=== PATIENT | male | born 1990 | race Caucasian/White ===

== ENCOUNTER 2020-01-29 07:01 | Emergency (ER) | payer SELFPAY ==
[~2020-01-29] VITALS: Ht 175.3 cm; Wt 63.5 kg
[2020-01-29 06:59] VITALS: BP 111/69
--- NOTE | 2020-01-29 06:59 | NUR ---
ED Nurse Note: Pt arrived with RA 61 due to behavioral complaint, pt was standing on the street. pt denies SI. pt appear to be under the influence. pt has spastic movements
--- NOTE | 2020-01-29 07:09 | Emergency Room Report ---
History of Present Illness General Chief Complaint: General Complaint Source: Patient Present Illness HPI Disclaimer: Please note that this report is being documented using DRAGON technology. This can lead to erroneous entry secondary to incorrect interpretation by the dictating instrument. HPI: 29-year-old homeless male presents via EMS requesting placement services. The patient states he has been abusing crystal meth for a long time and has a history of depression. Depression is getting worse but denies SI or HI. No suicide attempts or attempted self-harm per patient. States he used crystal meth earlier today and would like to get clean. Has completed inpatient detox services before. Does not have a psychiatrist currently is no longer taking Cymbalta since moving from [facility] 2-1/2 months ago. He is requesting something to eat. Denies any recent trauma, vomiting, fever, chills , cough, chest pain, shortness of breath or other changes in his health otherwise. PMH: Depression, substance abuse PSH: Reviewed Allergies: Reviewed Social Hx: Methamphetamine abuse Allergies: Coded Allergies: No Known Allergies (Unverified , 01/29/20) COVID-19 Screening Contact w/high risk pt: No Experienced COVID-19 symptoms?: No COVID-19 Testing performed METAL BUGGY OPERATOR: No Nursing Documentation-PMH History Of Psychiatric Problem: Yes Review of Systems All Other Systems: negative except mentioned in HPI Physical Exam Vital Signs Date Time Temp Pulse Resp B/P (MAP) Pulse Ox O2 Delivery O2 Flow Rate FiO2 01/29/20 06:56 97.9 86 01/29/20 06:56 16 111/69 (83) 98 Room Air General: Awake and alert, unkempt, no acute distress HEENT: NC/AT. EOMI. Cardiovascular: RRR. S1 and S2 normal. No murmur appreciated Resp: Normal work of breathing. No cough, wheezing or crackles appreciated Abdomen: Abdomen is soft, nondistended. Nontender Skin: Intact. No abrasions, laceration or rash over the exposed skin MSK: Normal tone and bulk. Moving all extremities. No obvious deformity. Neuro: Awake and alert. Mentating appropriately. Denies SI/HI. Does not appear to be hallucinating or responding to internal stimuli. Medical Decision Making Homeless Attestation Patient has been medically screened and is stable for outpatient follow up Diagnostic Impression: Primary Impression: Methamphetamine abuse ER Course Is a 29-year-old male presenting by EMS requesting placement in detox services for amphetamine abuse. Arrives with stable vital signs, no acute distress, mentating appropriately and denies SI/HI. The patient was previously taking Cymbalta for depression but does not follow-up with a psychiatrist since moving here from [facility] 2-1/2 months ago. Labs were obtained for medical clearance should he require them for voluntary placement to detox facility. He was provided with food. 0900: Labs have returned within normal limits. Patient tested positive for methamphetamine consistent with his history. Attempted to place patient in several detox facilities however he was unable to verify his Social Security number and insurance and therefore we are unable to establish a spot for him in an inpatient detox center. The patient denies any SI/HI currently and will be provided with resources to follow-up on his own. We instructed him that if he should be able to recall his Social Security or provide any other information regarding his insurances we may be able to help him with placement in the future. He does not appear to be in acute withdrawal or suffering from any acute medical conditions at this time. He was provided with food and clothing to take with him on discharge. He is stable for outpatient follow-up and instructed to return to the ED with any new or worsening symptoms. Laboratory Tests Test 01/29/20 07:10 White Blood Count 12.0 K/UL (4.8-10.8) H Red Blood Count 4.28 M/UL (4.70-6.10) L Hemoglobin 12.9 G/DL (14.2-18.0) L Hematocrit 38.7 % (42.0-52.0) L Mean Corpuscular Volume 90 FL (80-99) Mean Corpuscular Hemoglobin 30.2 PG (27.0-31.0) Mean Corpuscular Hemoglobin Concent 33.4 G/DL (32.0-36.0) Red Cell Distribution Width 11.5 % (11.6-14.8) L Platelet Count 270 K/UL (150-450) Mean Platelet Volume 7.2 FL (6.5-10.1) Neutrophils (%) (Auto) 80.9 % (45.0-75.0) H Lymphocytes (%) (Auto) 11.7 % (20.0-45.0) L Monocytes (%) (Auto) 6.3 % (1.0-10.0) Eosinophils (%) (Auto) 0.7 % (0.0-3.0) Basophils (%) (Auto) 0.5 % (0.0-2.0) Sodium Level 137 MMOL/L (136-145) Potassium Level 3.1 MMOL/L (3.5-5.1) L Chloride Level 105 MMOL/L (98-107) Carbon Dioxide Level 27 MMOL/L (21-32) Anion Gap 5 mmol/L (5-15) Blood Urea Nitrogen 11 mg/dL (7-18) Creatinine 0.9 MG/DL (0.55-1.30) Estimated Glomerular Filtration Rate > 60 mL/min (>60) Glucose Level 84 MG/DL (74-106) Calcium Level 8.2 MG/DL (8.5-10.1) L Total Bilirubin 0.5 MG/DL (0.2-1.0) Aspartate Amino Transferase (AST) 148 U/L (15-37) H Alanine Aminotransferase (ALT) 93 U/L (12-78) H Alkaline Phosphatase 68 U/L (46-116) Total Protein 6.7 G/DL (6.4-8.2) Albumin 3.5 G/DL (3.4-5.0) Globulin 3.2 g/dL Albumin/Globulin Ratio 1.1 (1.0-2.7) Salicylates Level 2.0 ug/mL (2.8-20) L Urine Opiates Screen Negative (NEGATIVE) Acetaminophen Level < 2 MCG/ML (10-30) L Urine Barbiturates Screen Negative (NEGATIVE) Phencyclidine (PCP) Screen Negative (NEGATIVE) Urine Amphetamines Screen Positive (NEGATIVE) H Urine Benzodiazepines Screen Negative (NEGATIVE) Urine Cocaine Screen Negative (NEGATIVE) Urine Marijuana (THC) Screen Negative (NEGATIVE) Serum Alcohol < 3 mg/dL Last Vital Signs Date Time Temp Pulse Resp B/P (MAP) Pulse Ox O2 Delivery O2 Flow Rate FiO2 01/29/20 06:59 86 16 Room Air 01/29/20 06:59 97.9 111/69 98 Disposition: HOME, SELF-CARE Condition: Stable Steve Nieves MD Jan 29, 2020 07:09
--- NOTE | 2020-01-29 07:17 | NUR ---
ED Nurse Note: Pt blood specimen collected via butterfly needle. blood and urine specimen sent to lab. pt calm and cooperative. Pt states he wants to be in detox. pt admits taking methamphetamine today.
--- NOTE | 2020-01-29 07:26 | NUR ---
ED Nurse Note: Called Aixa Valladares from [facility] in regards to placing pt with medical detox and residential treatment. Will verify pt insurance and call back.
--- NOTE | 2020-01-29 07:27 | NUR ---
ED Nurse Note: Aixa Valladares: [phone]
[2020-01-29 07:28] LABS: BASOPHILS % (AUTO) 0.5 % (0.0-2.0); EOSINOPHILS % (AUTO) 0.7 % (0.0-3.0); HEMATOCRIT 38.7 % (42.0-52.0); HEMOGLOBIN 12.9 G/DL (14.2-18.0); LYMPHOCYTES % (AUTO) 11.7 % (20.0-45.0); MEAN CORPUSCULAR VOLUME 90 FL (80-99); MONOCYTES % (AUTO) 6.3 % (1.0-10.0); NEUTROPHILS % (AUTO) 80.9 % (45.0-75.0); PLATELET COUNT 270 K/UL (150-450); RED BLOOD COUNT 4.28 M/UL (4.70-6.10); RED CELL DISTRIBUTION WIDTH 11.5 % (11.6-14.8)
[2020-01-29 07:42] LABS: ANION GAP 5 mmol/L (5-15); BLOOD UREA NITROGEN 11 mg/dL (7-18); CALCIUM 8.2 MG/DL (8.5-10.1); CARBON DIOXIDE 27 MMOL/L (21-32); CHLORIDE 105 MMOL/L (98-107); CREATININE 0.9 MG/DL (0.55-1.30); POTASSIUM 3.1 MMOL/L (3.5-5.1); SODIUM 137 MMOL/L (136-145)
[2020-01-29 07:44] LABS: ALANINE AMINOTRANSFERASE 93 U/L (12-78); ALBUMIN 3.5 G/DL (3.4-5.0); ALBUMIN/GLOBULIN RATIO 1.1 (1.0-2.7); ALKALINE PHOSPHATASE 68 U/L (46-116); ASPARTATE AMINO TRANSFERASE 148 U/L (15-37); BILIRUBIN,TOTAL 0.5 MG/DL (0.2-1.0)
--- NOTE | 2020-01-29 08:01 | NUR ---
ED Nurse Note: PT states he no longer wants to be placed with detox. He just wants a meal. Breakfast tray served to pt.
--- NOTE | 2020-01-29 08:58 | NUR ---
ED Nurse Note: Had pt speak with Aixa from [facility]. pt was unable to verify his social security number to verify insurance. pt was unable to placed directly but will be given detox center referral applicable to him.
--- NOTE | 2020-01-29 09:00 | NUR ---
ED Nurse Note: Pt has adequate clothing, pt was given meal and drink to go. pt given detox referrals.
--- NOTE | 2020-01-29 09:04 | NUR ---
ER DISCHARGE NOTE: Patient is cleared to be discharged per ERMD, pt is aox4, on room air, with stable vital signs. pt was given dc instructions, pt was able to verbalize understanding, pt id band removed. pt is able to ambulate with steady gait. pt took all belongings, has adequate clothing, pt has been given meal, and detox centern referrals
[2020-01-29 09:07] VITALS: BP 116/73
== END 2020-01-29 09:04 | disposition home or self-care (01) ==
LOC: EDBD 07:01 → EMR 07:35
DX: F15.10 Other stimulant abuse, uncomplicated (principal); F32.9 Major depressive disorder, single episode, unspecified
CPT/HCPCS: 36415; 80053; 80307; 85025; 99284; G0480

== ENCOUNTER 2020-01-29 22:52 | Emergency (ER) | payer SELFPAY ==
[~2020-01-29] VITALS: Ht 167.6 cm; Wt 59.0 kg
[2020-01-29 22:58] VITALS: BP 112/72
--- NOTE | 2020-01-29 22:58 | NUR ---
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 Pt aao x 4, resting in bed, pt presents with unsteady gait. VSS, no ss of distress noted. Pt denies pain or injury. Pt denies previous hx of falls. ERMD at bedside.
--- NOTE | 2020-01-29 23:01 | Emergency Room Report ---
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 He presents with chief complaint of generalized weakness. He is homeless. He also has a history of methamphetamine abuse. He was just here earlier this morning and was discharged. He was sitting on the curb on the sidewalk and bystander called 911. Patient denies any fever chills but denies any nausea vomiting. Said that he is hungry and want a place to sleep. Denies any suicidal thoughts or homicidal thought. Said that he has Kingsland but does not take any medication for it. Allergies: Coded Allergies: No Known Allergies (Unverified , 01/29/20) COVID-19 Screening Contact w/high risk pt: No Experienced COVID-19 symptoms?: No COVID-19 Testing performed TECHNICAL LABORATORY ASST: No Patient History Past Medical History: see triage record, old chart reviewed Past Surgical History: none Pertinent Family History: none Social History: Reports: smoking, drug use Immunizations: other Reviewed Nursing Documentation: PMH: Agreed; PSxH: Agreed Nursing Documentation-PMH Past Medical History: No History, Except For Review of Systems Constitutional: Reports: weakness Eye: Denies: eye pain, blurred vision ENT: Denies: ear pain, nose congestion, throat swelling Respiratory: Denies: cough, shortness of breath Cardiovascular: Denies: chest pain, palpitations Gastrointestinal: Denies: abdominal pain, diarrhea, nausea, vomiting Musculoskeletal: Denies: back pain, joint pain Skin: Denies: rash Neurological: Denies: headache, numbness Endocrine: Denies: increased thirst, increased urine Hematologic/Lymphatic: Denies: easy bruising All Other Systems: negative except mentioned in HPI Physical Exam Vital Signs Date Time Temp Pulse Resp B/P (MAP) Pulse Ox O2 Delivery O2 Flow Rate FiO2 01/29/20 22:51 98.2 92 18 112/72 (85) 98 Room Air Vitals normal Sp02 EP Interpretation: reviewed, normal General Appearance: well appearing, no apparent distress, alert Head: normocephalic, atraumatic Eyes: bilateral eye PERRL, bilateral eye EOMI ENT: hearing grossly normal, normal pharynx Neck: full range of motion, supple, no meningismus Respiratory: chest non-tender, lungs clear, normal breath sounds Cardiovascular #1: regular rate, rhythm, no murmur Gastrointestinal: normal bowel sounds, non tender, no mass, no organomegaly, no bruit, non-distended Musculoskeletal: back normal, normal range of motion Neurologic: other - Choreiform movements Psychiatric: mood/affect normal Medical Decision Making Diagnostic Impression: Primary Impression: Methamphetamine abuse Additional Impression: Kingsland's disease ER Course Patient presents with weakness. This probably secondary to drug abuse. He was here earlier for methamphetamine abuse. Is Carmen is at baseline. He is eating and drinking here without any problem. He is sleeping without any problem. He does not want to stay in the hospital. Will discharge in the morning. Patient does not meet criteria for 5150. He is competent to make decision to not stay in the hospital. This patient is a chronic risk of self injury due to poor impulse control, limited coping skills, and judgment intermittently impaired by intoxication. I believe that the available clinical evidence to suggest that these characteristics derived primarily from personality disorder and are likely very stable over time. Hospitalization would likely attenuate risk of self-harm only during mcc period, without lasting risk reduction. Serious self-harm , while possible, would likely be inadvertent, and because of impulsivity, and foreseeable. For these reasons, I do not believe hospitalization would provide meaningful reduction in risk of self-harm. Last Vital Signs Date Time Temp Pulse Resp B/P (MAP) Pulse Ox O2 Delivery O2 Flow Rate FiO2 01/29/20 22:51 98.2 92 18 112/72 (85) 98 Room Air Status: improved Disposition: HOME, SELF-CARE Condition: Stable Additional Instructions: Stop using drugs. Follow-up with rehab. Follow-up with your doctor in a week. Return if worse. Robert Santamaria MD Jan 29, 2020 23:01
--- NOTE | 2020-01-30 00:53 | NUR ---
ED Nurse Note: Patient resting in bed, no acute distress noted.
--- NOTE | 2020-01-30 03:59 | NUR ---
ED Nurse Note: Patient sleeping bed, no acute distres noted.
--- NOTE | 2020-01-30 05:40 | NUR ---
ER DISCHARGE NOTE: Patient is cleared to be discharged per ERMD, pt is aox4, on room air, with stable vital signs. pt was given dc instructions and homeless resources, refused to cooperate. patient refused to sign discharge paperwork and homeless paperwork. patient has appropriate clothing and provided with meal prior to discharge. patient stable upon discharge and entered in homeless log.
== END 2020-01-30 05:40 | disposition home or self-care (01) ==
LOC: EDBD 22:52 → EMR 23:14
DX: F15.10 Other stimulant abuse, uncomplicated (principal); G10 Huntington's disease
CPT/HCPCS: 99281

== ENCOUNTER 2020-01-30 18:06 | Emergency (ER) | payer SELFPAY ==
[~2020-01-30] VITALS: Ht 175.3 cm; Wt 72.6 kg
[2020-01-30 18:06] VITALS: BP 105/75
--- NOTE | 2020-01-30 18:06 | NUR ---
ED Nurse Note: Patient ARASH RA[address] from street c/o weakness. Pt was seen lying on the ground outside a motel. Pt stated feeling weak to walk. Pt AAOx4, verbally responsive. No SOB, on room air.
--- NOTE | 2020-01-30 18:37 | NUR ---
ED Nurse Note: Xray at bedside.
--- NOTE | 2020-01-30 19:08 | NUR ---
HAND-OFF: Report given to Trevon WASHINGTON.
[2020-01-30 19:11] LABS: ANION GAP 11 mmol/L (5-15); BLOOD UREA NITROGEN 8 mg/dL (7-18); CALCIUM 8.5 MG/DL (8.5-10.1); CARBON DIOXIDE 26 MMOL/L (21-32); CHLORIDE 108 MMOL/L (98-107); CREATININE 0.9 MG/DL (0.55-1.30); POTASSIUM 3.9 MMOL/L (3.5-5.1); SODIUM 145 MMOL/L (136-145)
[2020-01-30 19:17] LABS: ALANINE AMINOTRANSFERASE 84 U/L (12-78); ALBUMIN 3.3 G/DL (3.4-5.0); ALBUMIN/GLOBULIN RATIO 0.9 (1.0-2.7); ALKALINE PHOSPHATASE 63 U/L (46-116); ASPARTATE AMINO TRANSFERASE 111 U/L (15-37); BILIRUBIN,TOTAL 0.3 MG/DL (0.2-1.0)
--- NOTE | 2020-01-30 19:24 | Emergency Room Report ---
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 Denies any cough congestion, shortness of breath, headache and dizziness. Complete blood work was done on him yesterday and all within normal limits. Patient denies any drug use. Appears to be under the influence of an unknown stimulant. Speaking in full sentences. At this time patient is not a good historian. Denies alcohol intake. Patient is asking for sandwich and more fluid in liquids upon arrival. (Nancy Uriostegui) Allergies: Coded Allergies: No Known Allergies (Unverified , 01/29/20) COVID-19 Screening COVID-19 risk:Contact w/high r: No Has patient experienced [place]: No COVID-19 Testing performed TWILL CUTTER: No (Nancy Uriostegui) Patient History Past Medical History: see triage record Past Surgical History: none Family History: none Immunizations: UTD Reviewed Nursing Documentation: PMH: Agreed; PSxH: Agreed (Nancy Uriostegui) Nursing Documentation-PMH Past Medical History: No History, Except For (Nancy Uriostegui) Review of Systems All Other Systems: negative except mentioned in HPI (Nancy Uriostegui) Physical Exam Vital Signs Date Time Temp Pulse Resp B/P (MAP) Pulse Ox O2 Delivery O2 Flow Rate FiO2 01/30/20 18:03 98.4 102 18 105/75 (85) 96 Room Air Sp02 EP Interpretation: reviewed, normal General Appearance: alert/responsive, no apparent distress, GCS 15, non-toxic Head: atraumatic Eyes: PERRL, lids + conjunctiva normal ENT: hearing intact, no angioedema Neck: supple/symm/no masses, no meningismus Respiratory: effort normal, no wheezing, chest symmetrical Cardiovascular: regular rate, rhythm, no edema Gastrointestinal: no mass Musculoskeletal: gait & station normal Neurologic: oriented x3, sensory intact, normal speech Psychiatric: no suicidal/homicidal ideation, affect normal Skin: no rash Lymphatic: normal inspection (Nancy Uriostegui) Medical Decision Making PA Attestation All diagnoses and treatment plans were reviewed and discussed with my supervising physician Dr. 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 Denies any cough congestion, shortness of breath, headache and dizziness. Complete blood work was done on him yesterday and all within normal limits. Patient denies any drug use. Appears to be under the influence of an unknown stimulant. Speaking in full sentences. At this time patient is not a good historian. Denies alcohol intake. Patient is asking for sandwich and more fluid in liquids upon arrival. Ddx considered but are not limited to: Alcohol intoxication with altered level of consciousness, alcohol intoxication causing pancreatitis, alcohol abuse, multi drug use and alcohol intoxication, methamphetamine abuse Vital signs: are WNL, pt. is afebrile H&PE are most consistent with: Methamphetamine abuse ORDERS: Chest x-ray, CBC, CMP, tox screen, ER intervention: NS bolus, DISCHARGE: At this time pt. is stable for d/c to home. Will provide printed patient care instructions, and any necessary prescriptions. Care plan and follow up instructions have been discussed with the patient prior to discharge. Patient to be discharged after hydration. Patient to check himself into detox center and avoid using methamphetamine. (Nancy Uriostegui) Chest X-Ray Diagnostic Results Chest X-Ray Diagnostic Results : Chest X-Ray Ordered: Yes # of Views/Limited/Complete: 1 View Indication: Other EP Interpretation: Yes Interpretation: no consolidation, no effusion, no pneumothorax Impression: No acute disease Electronically Signed by: Nancy Mims PA-C (Nancy Uriostegui) Chest X-Ray Diagnostic Results : Electronically Signed by: Cm Suarez documentation of Xray reviewed by me and is accurate, Mehrdad Simms MD (Mehrdad Simms MD) Last Vital Signs Date Time Temp Pulse Resp B/P (MAP) Pulse Ox O2 Delivery O2 Flow Rate FiO2 01/30/20 18:06 102 18 Room Air 01/30/20 18:06 98.4 105/75 96 (Nancy Uriostegui) Disposition: HOME, SELF-CARE Condition: Stable Patient Instructions: Stimulant Use Disorder-Methamphetamines Additional Instructions: Avoid using methamphetamine, follow with primary care provider, increase oral hydration, worsening symptoms return to the emergency room Nancy Uriostegui Jan 30, 2020 19:24 Mehrdad Simms MD Jan 31, 2020 02:29
--- NOTE | 2020-01-30 19:30 | NUR ---
ED Nurse Note: Received patient from [facility]. patient in no distress at this time. IV intact. will continue to monitor. urine sent down to lab
--- NOTE | 2020-01-30 19:32 | Diagnostic Imaging Report ---
EXAM: XR Chest, 1 View CLINICAL HISTORY: PAIN TECHNIQUE: Frontal view of the chest. COMPARISON: No previous study. FINDINGS: Lungs: The lungs are well aerated. No consolidative change. Pleural space: No pleural effusion. No pneumothorax. Heart: Cardiomediastinal silhouette unremarkable. Mediastinum: See above. Bones/joints: The ribs are unremarkable. IMPRESSION: No active disease.
[2020-01-30 19:53] LABS: BASOPHILS % (AUTO) 0.9 % (0.0-2.0); EOSINOPHILS % (AUTO) 1.3 % (0.0-3.0); HEMATOCRIT 39.1 % (42.0-52.0); LYMPHOCYTES % (AUTO) 27.5 % (20.0-45.0); MEAN CORPUSCULAR VOLUME 89 FL (80-99); MONOCYTES % (AUTO) 9.7 % (1.0-10.0); NEUTROPHILS % (AUTO) 60.7 % (45.0-75.0); PLATELET COUNT 292 K/UL (150-450); RED BLOOD COUNT 4.37 M/UL (4.70-6.10); RED CELL DISTRIBUTION WIDTH 11.9 % (11.6-14.8); WHITE BLOOD COUNT 7.5 K/UL (4.8-10.8)
== END 2020-01-30 20:15 | disposition home or self-care (01) ==
LOC: EDBD 18:06 → EMR 19:47
DX: F15.10 Other stimulant abuse, uncomplicated (principal)
CPT/HCPCS: 36415; 71045; 80053; 80307; 85025; 96360; 99284

== ENCOUNTER 2020-01-31 02:41 | Emergency (ER) | payer SELFPAY ==
[~2020-01-31] VITALS: Ht 170.2 cm; Wt 49.9 kg
[2020-01-31 02:45] VITALS: BP 105/72
--- NOTE | 2020-01-31 02:49 | Emergency Room Report ---
History of Present Illness General Chief Complaint: Generalized Weakness Source: Patient Present Illness HPI Disclaimer: Please note that this report is being documented using DynamixyzON technology. This can lead to erroneous entry secondary to incorrect interpretation by the dictating instrument. HPI: 29-year-old male with history of methamphetamine use and Solano's disease noncompliant with medication presents by EMS for evaluation of weakness. According to EMS bystander called police after he was found sleeping on their lawn. He was complaining of weakness to EMS. He is refusing to answer questions at this time. He was seen in the emergency department 3 times in the past 2 days. Labs were within normal limits however the patient tested positive for methamphetamines on both occasions in which labs were done. He is sitting upright in the chair and refusing to speak or provide any information. PMH: Solano's, methamphetamine use PSH: Unable to obtain from patient Allergies: Unable to obtain from patient Social Hx: History of methamphetamine use Allergies: Coded Allergies: No Known Allergies (Unverified , 01/29/20) COVID-19 Screening Contact w/high risk pt: No Experienced COVID-19 symptoms?: No COVID-19 Testing performed DRUG SAFETY ASSOCIATE: No Nursing Documentation-PMH Past Medical History: No History, Except For Review of Systems All Other Systems: limited - Patient refusing to answer questions Physical Exam General: Awake, not responding verbally, no acute distress, disheveled HEENT: NC/AT. EOMI. Cardiovascular: RRR. S1 and S2 normal. No murmur appreciated Resp: Normal work of breathing. No cough, wheezing or crackles appreciated Abdomen: Abdomen is soft, nondistended. Nontender Skin: Intact. No abrasions, laceration or rash over the exposed skin MSK: Normal tone and bulk. Moving all extremities. No obvious deformity. Neuro: Awake and alert. Mentating appropriately. Medical Decision Making Homeless Attestation Patient has been medically screened and is stable for outpatient follow up Diagnostic Impression: Primary Impression: General weakness ER Course 29-year-old male with a history of Carmen's and alcohol abuse presents for generalized weakness. Patient was not providing any history though was requesting something to eat. Similar to his prior presentations over the past 2 days. Shortly after arrival the patient was requesting discharge I would like a sandwich to go. Food was provided to him. He was ambulating with his baseline gait. He has tested positive for methamphetamines twice on his past visits though otherwise his labs were within normal limits. I do not believe he requires emergent labs or imaging at this time. Patient has been referred to outpatient social work services multiple times on his previous visits. Stable for outpatient follow-up. Disposition: HOME, SELF-CARE Condition: Stable Steve Nieves MD Jan 31, 2020 02:49
[2020-01-31 03:00] VITALS: BP 110/75
== END 2020-01-31 03:00 | disposition home or self-care (01) ==
LOC: EDUNIT# 02:41 → EDBD 02:41 → EMR 02:50
DX: R53.1 Weakness (principal); G10 Huntington's disease
CPT/HCPCS: 99281